=== PATIENT | male | born 1995 | race Caucasian/White ===

== ENCOUNTER → 2025-06-26 | Outpatient (CLI) | payer OTHER, SELFPAY ==
[2025-06-26 19:06] LABS: AST(SGOT) 41 U/L (<=37); Alanine Aminotransfer ALT/SGPT 62 U/L (<=46); Albumin, Serum 4.7 g/dL (3.5-5.0); Alkaline Phosphatase 76 U/L (40-129); Anion Gap 13 (5-15); BUN 12 mg/dL (4-19); BUN/Creat Ratio 12.3 RATIO (10-20); Calcium,Total 10.1 mg/dL (7.6-11.0); Carbon Dioxide 26.0 mmol/L (21.0-32.0); Chloride 102 mmol/L (98-108); Cholesterol 192 mg/dL (<=200); Globulin 3.4 g/dL (2.2-4.2); Glucose 101 mg/dL (70-99); Low Density Lipoprotein Calc. 115 mg/dL; Magnesium 2.0 mg/dL (1.5-2.2); Potassium 3.7 mmol/L (3.3-5.1); Triglycerides 177 mg/dL; Very Low Density Lipoprotein 35 mg/dL (5-40); Vitamin B12 613 pg/mL (180-914); Vitamin D,25 Hydroxy 21.9 ng/mL (30-100); cholesterol:hdl ratio screen 4.22
[2025-06-26 19:34] LABS: Color, Urine Yellow (Yellow); Glucose, Dipstick Normal (Normal); Ketone-Dipstick Negative (Negative); Leukocyte Esterase-Dipstick Negative /ul (Negative); Nitrite-Dipstick Negative (Negative); Occult Blood-Urine Negative /ul (Negative); Protein-Dipstick Negative (Negative); Specific Gravity, Urine 1.020 (1.002-1.030); Urine Bilirubin Dipstick Negative (Negative)
[2025-06-26 22:39] LABS: Mucous, Urine 2+ /hpf (<or=2+); Red Blood Cells-Urine 0-5 SEEN /hpf (0-5); Squamous Epithelial Cells - UA 0-5 SEEN /hpf (0-5)
== END | disposition home or self-care (01) ==
LOC: MFPLAB 16:42
PROVIDERS: Visit Provider Family Medicine
DX: E66.9 Obesity, unspecified (principal); R68.89 Other general symptoms and signs
CPT/HCPCS: 36415; 80053; 80061; 81001; 82306; 82607; 83735; 84439; 84443

== ENCOUNTER → 2025-07-03 | Outpatient (CLI) | payer OTHER, SELFPAY ==
[2025-07-03 18:32] LABS: Hepatitis B Surface Antigen Nonreactive (Nonreactive); Hepatitis C Antibody Nonreactive (Nonreactive)
== END | disposition home or self-care (01) ==
LOC: MFPLAB 16:24
PROVIDERS: PCP Family Medicine; Referring Provider Family Medicine; Visit Provider Family Medicine
DX: R73.09 Other abnormal glucose (principal); R79.89 Other specified abnormal findings of blood chemistry
CPT/HCPCS: 36415; 83036; 86706; 86803; 87340

== ENCOUNTER 2025-07-23 16:50 | Emergency (ER) | payer OTHER, SELFPAY ==
[2025-07-23 16:51] VITALS: BP 149/100; PULSE 104; RESP 26; TEMP 36.1; O2SAT 97; BMI 31.4
--- NOTE | 2025-07-23 17:14 | EX.ED.VIS.PS ---
HPI HPI - Psych History of Present Illness Chief Complaint: Mental Health Narrative Narrative: Patient is a 29-year-old male presenting to the emergency department for suicidal ideation and alcohol abuse. Patient has a prior history of alcohol abuse. States that he has been drinking 1/5 of vodka for years. States that he drank 1/5 of liquor last night and then drink 4 and 1 drinks this morning. States that he used to use cocaine and Adderall but does not use this any longer. He states that when he drinks he becomes sad and then has suicidal thoughts. States if he were to kill himself he would drink himself to . States that his last drink was about 4 hours ago. Denies any physical complaints. States he never been hospitalized for any psychiatric reason for alcohol abuse/detox/rehab. Arrives here with and father. PFSH PFS Medical History Alcohol abuse Home Medications Medication Instructions Recorded Last Taken Type buspirone 10 mg tablet 10 mg PO BID 07/23/25 07/23/25 History ergocalciferol (vitamin D2) 1,250 1,250 mcg PO QWEEK 07/23/25 07/17/25 History mcg (50,000 unit) capsule sertraline 25 mg tablet 25 mg PO DAILY 07/23/25 07/23/25 History Allergy/AdvReac Type Severity Reaction Status Date / Time Penicillins Allergy Mild Hives Verified 07/23/25 16:54 Sulfa (Sulfonamide Allergy Mild Hives Verified 07/23/25 16:54 Antibiotics) Social History Smoking Status: Current every day smoker tobacco type: cigarettes ROS ROS ED ROS Narrative see HPI EXAM Physical Exam Narrative Exam Narrative: Vital signs: Reviewed General: Alert and orientedx3. No acute distress. Agitated. Intoxicated HEENT: Head is normocephalic and atraumatic, sinuses nontender, pupils equal round and reactive. Nares are patent. Oropharynx and throat exams normal. Neck: Supple without lymphadenopathy nontender Cardiovascular: Regular rate and rhythm, no murmurs. No rubs or gallops. Normal S1 and S2 Respiratory: Clear to auscultation bilaterally. No wheezes, rales, rhonchi Abdominal: Soft and nontender. Normal bowel sounds. No guarding or rebound. Nonsurgical abdomen Extremities: No tenderness. No bruising. Normal range of motion. Normal sensation. Skin: No rash or redness. Neurological: Cranial nerves II through XII are grossly intact. Normal strength and sensation. Normal cerebellar function The rest of the physical exam is unremarkable Const Vital Signs: 07/23/25 16:51 07/23/25 20:29 07/23/25 21:51 Temperature 97 F L 98.2 F Temperature Source Temporal Pulse Rate 104 H 76 76 Respiratory Rate 26 H 16 16 Blood Pressure 149/100 H 131/96 H 131/96 H Blood Pressure Mean 116 107 107 Pulse Ox 97 100 100 Oxygen Delivery Method Room Air Room Air General Appearance ED: irritable Psych mental status grossly normal Appearance: appropriate and well kempt Attitude: agitated and hostile Activity / Motor Behavior: fidgetting, restless and avoids eye contact Speech: normal speech Mood & Affect: depressed, irritable and labile affect Thought Process: normal thought process Thought Content: suicidality, No homicidality, No delusion(s) and No hallucination(s) Attention / Concentration: attention grossly intact and concentration grossly intact MDM MDM MDM Narrative Medical decision making narrative: Patient is a 29-year-old male presenting to emergency department for alcohol abuse and suicidal ideation. Patient was seen and examined. Vitals are stable. Patient resting in chair comfortably no acute distress. He has no physical complaints. He is slightly hostile and has labile emotions. Given the patient's current intoxication and suicidal thoughts he will pink slipped. Basic labs were obtained for medical clearance and social work was consulted. Labs are unremarkable other than a mild anion gap of 17 and alcohol level of 298. Positive for cannabinoids. EKG shows normal sinus rhythm with sinus arrhythmia. No ischemic changes. Social work evaluated the patient and also recommended inpatient psychiatric admission with dual treatment of alcohol abuse and mental illness. Patient and family at bedside were updated on the treatment plan. Patient was accepted at [facility] and will be transported there. Clinical impression: Alcohol abuse Suicidal ideation History & Record Review Discussion w/independent historian: Patient and Significant other Lab Data Attestation: I reviewed the patient's lab results. Labs: Laboratory Results - last 24 hr 07/23/25 07/23/25 17:22 20:19 WBC 6.5 RBC 5.16 Hgb 16.1 Hct 46.7 MCV 90.5 MCH 31.2 MCHC 34.5 RDW Std Deviation 42.0 RDW Coeff of Francis 12.7 Plt Count 297 MPV 9.1 Immature Gran % (Auto) 0.200 Neut % (Auto) 45.9 L Lymph % (Auto) 44.0 H [place] % (Auto) 8.3 Eos % (Auto) 0.5 Baso % (Auto) 1.1 H Absolute Neuts (auto) 3.0 Absolute Lymphs (auto) 2.87 Nucleated RBC % 0 Sodium 147 H Potassium 3.8 Chloride 107 Carbon Dioxide 22.9 Anion Gap 17 H BUN 8 Creatinine 1.02 Estim Creat Clear Calc 144.42 Est GFR (MDRD) Non-Af 101 BUN/Creatinine Ratio 8.0 L Glucose 117 H Calcium 9.1 Urine Opiates Screen NEGATIVE U Buprenorphine Qual NEGATIVE Ur Oxycodone Screen NEGATIVE Urine Methadone Screen NEGATIVE Urine Fentanyl Screen NEGATIVE Ur Barbiturates Screen NEGATIVE Ur Phencyclidine Scrn NEGATIVE Ur Amphetamines Screen NEGATIVE U Benzodiazepines Scrn NEGATIVE Urine Cocaine Screen NEGATIVE U Cannabinoids Screen PRESUMPTIVE POSITIVE Ethyl Alcohol 298.0 H Discharge Plan Triage Chief Complaint: Mental Health ED Provider: Klaudia Wilson Dx/Rx/DC Orders Prescriptions: No Action buspirone 10 mg tablet 10 mg PO BID sertraline 25 mg tablet 25 mg PO DAILY ergocalciferol (vitamin D2) 1,250 mcg (50,000 unit) capsule 1,250 mcg PO QWEEK Primary Care Provider: Kevin Schmidt Referrals: Kevin Schmidt MD [Primary Care Provider, [facility]] Print Language: Guamanian Disposition Disposition: Psychiatric Hospital or Unit Discharge Location: [facility] Discharge Date/Time: 07/23/25 22:49
--- NOTE | 2025-07-23 17:28 | EKG12_ITS ---
Test Reason : MHC Blood Pressure : */* mmHG Vent. Rate : 76 BPM Atrial Rate : 76 BPM P-R Int : 146 ms QRS Dur : 86 ms QT Int : 366 ms P-R-T Axes : 29 31 19 degrees QTcB Int : 411 ms Normal sinus rhythm with sinus arrhythmia Normal ECG Confirmed by EBONY THOMPSON ([id number]), editor producer CANDIDO GRISSOM ([id number]) on 07/28/2025 6:28:07 AM Referred By: Confirmed By: EBONY THOMPSON
[2025-07-23 17:31] LABS: Hematocrit 46.7 % (40-54); Hemoglobin 16.1 g/dL (13.0-16.5); Immature Granulocytes Count 0.010 X10^3/uL (0.0-0.0); Mean Corp Hgb Conc 34.5 g/dL (32-36); Mean Corpuscular Volume 90.5 fL (80-94); Mean Platelet Vol. 9.1 fl (6.2-12.0); NRBC Flagged by Analyzer 0 % (0-5); Platelet Count 297 K/mm3 (150-450); RBC Distribution Width CV 12.7 % (11.6-14.6); RBC Distribution Width SD 42.0 fl (35.1-43.9); Red Blood Count 5.16 M/mm3 (4.6-6.2); White Blood Count 6.5 K/mm3 (4.4-11.0)
[2025-07-23] MEDS: Nicotine (PBKC) 7 MG Patch TD (17:34)
[2025-07-23 17:59] LABS: Alcohol, Blood (Medical)-Serum 298.0 mg/dL (<=10.0)
[2025-07-23 18:00] LABS: Anion Gap 17 (5-15); BUN 8 mg/dL (4-19); BUN/Creat Ratio 8.0 RATIO (10-20); Calcium,Total 9.1 mg/dL (7.6-11.0); Carbon Dioxide 22.9 mmol/L (21.0-32.0); Chloride 107 mmol/L (98-108); Estimated Creatinine Clearance 144.42 ml/min (50-250); Glucose 117 mg/dL (70-99); Potassium 3.8 mmol/L (3.3-5.1)
--- OUTSIDE RECORDS SUMMARY | 2025-07-23 18:53 | XMS RPT_ITS | CCD ---
Author Organization [place] [facility] Care Team Providers Care Grinder Name Role Phone Kevin Schmidt Attending Unavailable Kevin Schmidt Attending Unavailable Kevin Schmidt Referring Unavailable Kevin Schmidt Primary Care Unavailable Problems Problem Classification Problem Date Documented Da te Episodic/Chronic Other nutritional; endocrine; and metabolic disorders (1 source) Obesity, unspecified; Translations: [Obesity, unspecified] Onset: 07-02-2025 Chronic Other screening for suspected conditions (not mental disorders or infectious disease) (1 source) Other specified abnormal findings of blood chemistry; Translations: [Other specified abnormal findings of blood chemistry] Onset: 07-03-2025 Episodic Results Test Name Value Interpretation Reference Range Facil ity Hemoglobin A1con 07-03-2025 HbA1c (Bld) [Mass fraction] 5.2 % Normal <=5.6 [facility] Comment on above: Result Comment: Norm al < 5.7 % Prediabetic 5.7 - 6.4 % Diabetic >or= 6.5 % Please note range changes. Performed By: #### L 3890.6202, L3890.6102, L501.9985, L3890.6301 #### [facility] [address] [place], [place], [id number] Hepatitis B Surface Antibody on 07-03-2025 HEP B Surf Ab Non-Reactive Normal [facility] Comment on above: Result Comment: <8.5 mIU/mL: Non-Reactive 8.5<= x <11.5 mIU/mL: Indeterminate >=11.5 mIU/mL: Reactive Non Reactive: Inconsistent with immunity less than <10 mIU/mL Reactive: Consistent with immunity greater than or equal to 10 mIU/mL Performed By: #### L 3890.6202, L3890.6102, L501.9985, L3890.6301 #### [facility] [address] [place], [address] Hepatitis C Antibodyon 07-03 Hepatitis C Ab Non-Reactive Normal Nonreactive [facility] Comment on above: Result Comment: Reac tive: Presumptive evidence of antibodies to HCV. Follow CDC recommendations for supplemental testing. Non-Reactive: Antibodies to HCV were not detected; does not exclude the possibility of exposure to HCV Reactive Results are presumptive evidence of antibodies to HCV. Follow CDC recommendations for supplemental testing. Order confirmation testing: HCV Quant by PCR testing - HCVPCR #[id number] Non Reactive: < 0.8 Equivocal: >/= 0.8 to < 1.0 Reactive: >/= 1.0 The [facility] requires that a reactive/equivocal HCV antibody result be sent out for confirmation. HCV Quant by PCR testing. Performed By: #### L 503.0106, L506.1001, L400.0001 #### [facility] [address] [place], [place], [address] L3890.6102on 07-03-2025 HEP B Surf Ag Non-Reactive Normal Nonreactive [facility] Comment on above: Result Comment: Reac tive: Presumptive evidence of HBV. Repeatedly reactive samples must be confirmed using a neutralization test ([employer] HBsAg Confirmatory Test) Non-Reactive: HBsAg not detected; does not exclude the possibility of exposure to HBV Performed By: #### L 503.0106, L506.1001, L400.0001 #### [facility] [address], [place], [address] Comprehensive Metabolic Prof ilon 06-26-2025 Albumin [Mass/Vol] 4.7 g/dL Normal 3.5-5.[address] [facility] Comment on above: Order Comment: Order Date: 06/26/25 Order Info: 0786-1 - CMP Order Info: [id number] - LIPID Order Info: [id number] - MG Order Info: 3016-3 - TSH Order Info: 3024-7 - T4F Performed By: #### L 500.4100, L500.4050, L506.0400, L501.9520, L501.5200 #### [facility] [address] [place], [address] Albumin/Globulin [Mass ratio] 1.4 {ratio} Normal 0.9-2.4 [facility] Comment on above: Order Comment: Order Date: 06/26/25 Order Info: 0786-1 - CMP Order Info: [id number] - LIPID Order Info: [id number] - MG Order Info: 3016-3 - TSH Order Info: 3024-7 - T4F Performed By: #### L 500.4100, L500.4050, L506.0400, L501.9520, L501.5200 #### [facility] [address] [place], [address] ALK PHOS 76 U/L Normal 40-129 [facility] Comment on above: Order Comment: Order Date: 06/26/25 Order Info: 785-1 - CMP Order Info: [id number] - LIPID Order Info: [id number] - MG Order Info: 3016-3 - TSH Order Info: 3024-7 - T4F Performed By: #### L 500.4100, L500.4050, L506.0400, L501.9520, L501.5200 #### [facility] [address] [place], [address] ALT [Catalytic activity/Vol] 62 U/L High <=46 [facility] Comment on above: Order Comment: Order Date: 06/26/25 Order Info: 0786-1 - CMP Order Info: [id number] - LIPID Order Info: 38524-3 - MG Order Info: 3016-3 - TSH Order Info: 3024-7 - T4F Performed By: #### L 500.4100, L500.4050, L506.0400, L501.9520, L501.5200 #### [facility] [address] [place], [address] AST [Catalytic activity/Vol] 41 U/L High <=37 [facility] Comment on above: Order Comment: Order Date: 06/26/25 Order Info: 0786-1 - CMP Order Info: 98024-3 - LIPID Order Info: 16731-0 - MG Order Info: 3016-3 - TSH Order Info: 3024-7 - T4F Performed By: #### L 500.4100, L500.4050, L506.0400, L501.9520, L501.5200 #### [facility] [address] [place], [address] Bilirubin [Mass/Vol] 0.39 mg/dL Normal 0.00-1.30 [facility] Comment on above: Order Comment: Order Date: 06/26/25 Order Info: 86-1 - CMP Order Info: 96618-7 - LIPID Order Info: [id number] - MG Order Info: 3015-3 - TSH Order Info: 3024-7 - T4F Performed By: #### L 500.4100, L500.4050, L506.0400, L501.9520, L501.5200 #### [facility] [address] [place], [address] BUN/CRE 12.3 RATIO Normal 10-20 [facility] Comment on above: Order Comment: Order Date: 06/26/25 Order Info: 0786-1 - CMP Order Info: 70905-1 - LIPID Order Info: 77803-2 - MG Order Info: 301-3 - TSH Order Info: 3024-7 - T4F Performed By: #### L 500.4100, L500.4050, L506.0400, L501.9520, L501.5200 #### [facility] [address] [place], [address] Calcium [Mass/Vol] 10.1 mg/dL Normal 7.6-11.[address] [facility] Comment on above: Order Comment: Order Date: 06/26/25 Order Info: 0786-1 - CMP Order Info: 04063-2 - LIPID Order Info: [id number] - MG Order Info: 3016-3 - TSH Order Info: 3024-7 - T4F Performed By: #### L 500.4100, L500.4050, L506.0400, L501.9520, L501.5200 #### [facility] [address] [place], [address] Chloride [Moles/Vol] 102 mmol/L Normal 98-108 [facility] Comment on above: Order Comment: Order Date: 06/26/25 Order Info: 0786-1 - CMP Order Info: 96046-3 - LIPID Order Info: [id number] - MG Order Info: 3016-3 - TSH Order Info: 3024-7 - T4F Performed By: #### L 500.4100, L500.4050, L506.0400, L501.9520, L501.5200 #### [facility] [address] [place], [place], [address] CO2 [Moles/Vol] 26.0 mmol/L Normal 21.0-32.0 [facility] Comment on above: Order Comment: Order Date: 06/26/25 Order Info: 86-1 - CMP Order Info: 68633-7 - LIPID Order Info: [id number] - MG Order Info: 3016-3 - TSH Order Info: 3024-7 - T4F Performed By: #### L 500.4100, L500.4050, L506.0400, L501.9520, L501.5200 #### [facility] [address] [place], [address] Creatinine [Mass/Vol] 0.94 mg/dL Normal 0.70-1.20 [facility] Comment on above: Order Comment: Order Date: 06/26/25 Order Info: 0786-1 - CMP Order Info: [id number] - LIPID Order Info: [id number] - MG Order Info: 3016-3 - TSH Order Info: 3024-7 - T4F Performed By: #### L 500.4100, L500.4050, L506.0400, L501.9520, L501.5200 #### [facility] [address] [place], [address] GAP 13 Normal 5-15 [facility] Comment on above: Order Comment: Order Date: 06/26/25 Order Info: 86-1 - CMP Order Info: 60934-6 - LIPID Order Info: [id number] - MG Order Info: 3016-3 - TSH Order Info: 3027 - T4F Performed By: #### L 500.4100, L500.4050, L506.0400, L501.9520, L501.5200 #### [facility] [address] [place], [address] GFR/1.73 sq M.predicted among non-blacks MDRD (S/P/Bld) [Vol rate/Area] 112 mL/min/{1.73_m2} Normal >60 [facility] Comment on above: Order Comment: Order Date: 06/26/25 Order Info: 785- - CMP Order Info: 75319-8 - LIPID Order Info: [id number] - MG Order Info: 3 - TSH Order Info: 7 - T4F Result Comment: mL/m in/1.73m2 CKD-EPI Creatinine Equation (2020) Performed By: #### L 500.4100, L500.4050, L506.0400, L501.9520, L501.5200 #### [facility] [address] [place], [address] Globulin (S) [Mass/Vol] 3.4 g/dL Normal 2.2-4.2 [facility] Comment on above: Order Comment: Order Date: 06/26/25 Order Info: 785-1 - CMP Order Info: 24692-0 - LIPID Order Info: [id number] - MG Order Info: 3016-3 - TSH Order Info: 3024-7 - T4F Performed By: #### L 500.4100, L500.4050, L506.0400, L501.9520, L501.5200 #### [facility] [address] [place], [address] Glucose [Mass/Vol] 101 mg/dL High 70-[address] [facility] Comment on above: Order Comment: Order Date: 06/26/25 Order Info: 0786-1 - CMP Order Info: 78301-5 - LIPID Order Info: [id number] - MG Order Info: 3016-3 - TSH Order Info: 3024-7 - T4F Performed By: #### L 500.4100, L500.4050, L506.0400, L501.9520, L501.5200 #### [facility] [address] [place], [address] Potassium [Moles/Vol] 3.7 mmol/L Normal 3.3-5.1 [facility] Comment on above: Order Comment: Order Date: 06/26/25 Order Info: 785-08 - CMP Order Info: - LIPID Order Info: [id number] - MG Order Info: 3016-3 - TSH Order Info: 3024-7 - T4F Performed By: #### L 500.4100, L500.4050, L506.0400, L501.9520, L501.5200 #### [facility] [address] [place], [address] Sodium [Moles/Vol] 141 mmol/L Normal 133-[address] [facility] Comment on above: Order Comment: Order Date: 06/26/25 Order Info: 07- - CMP Order Info: 93236-4 - LIPID Order Info: [id number] - MG Order Info: 3016-3 - TSH Order Info: 3024-7 - T4F Performed By: #### L 500.4100, L500.4050, L506.0400, L501.9520, L501.5200 #### [facility] [address] [place], [address] T PROT 8.1 g/dL Normal 5.9-8.4 [facility] Comment on above: Order Comment: Order Date: 06/26/25 Order Info: 07-1 - CMP Order Info: 87710-5 - LIPID Order Info: [id number] - MG Order Info: 3 - TSH Order Info: 7 - T4F Performed By: #### L 500.4100, L500.4050, L506.0400, L501.9520, L501.5200 #### [facility] [address] [place], [address] Urea nitrogen [Mass/Vol] 12 mg/dL Normal 4-19 [facility] Comment on above: Order Comment: Order Date: 06/26/25 Order Info: 785- - CMP Order Info: - LIPID Order Info: [id number] - MG Order Info: 3 - TSH Order Info: 3024-02 - T4F Performed By: #### L 500.4100, L500.4050, L506.0400, L501.9520, L501.5200 #### [facility] [address] [place], [address] Lipid Profileon 06-26-2025 CHOL:HDL 4.22 Normal [facility] Comment on above: Order Comment: Order Date: 06/26/25 Order Info: 785-08 - CMP Order Info: - LIPID Order Info: [id number] - MG Order Info: 3 - TSH Order Info: 3024-02 - T4F Performed By: #### L 500.4100, L500.4050, L506.0400, L501.9520, L501.5200 #### [facility] [address] [place], [address] Cholesterol [Mass/Vol] 192 mg/dL Normal <=200 [facility] Comment on above: Order Comment: Order Date: 06/26/25 Order Info: 0786-1 - CMP Order Info: [id number] - LIPID Order Info: [id number] - MG Order Info: 3016-3 - TSH Order Info: 3024-7 - T4F Result Comment: Chol esterol level, Desirable <200 mg/dL Borderline high cholesterol 200-239 mg/dL High cholesterol >=240 mg/dL Recommendations of the NCEP Adult Treatment Panel for the following risk-cutoff thresholds for the [place] population. Performed By: #### L 500.4100, L500.4050, L506.0400, L501.9520, L501.5200 #### [facility] [address] [place], [address] Cholesterol in HDL [Mass/Vol] 46 mg/dL Normal [facility] Comment on above: Order Comment: Order Date: 06/26/25 Order Info: 0786-1 - CMP Order Info: [id number] - LIPID Order Info: 94430-1 - MG Order Info: 3 - TSH Order Info: 3024-02 T4F Result Comment: Laura onal Cholesterol Education Program (NCEP) guidelines: <40 mg/dL: Low HDL-cholesterol (major risk factor for CHD) >= 60 mg/dL: High HDL-cholesterol (negative risk factor for CHD) HDL-cholesterol is affected by a number of factors, e.g. smoking, exercise, hormones, sex and age. Performed By: #### L 500.4100, L500.4050, L506.0400, L501.9520, L501.5200 #### [facility] [address] [place], [address] Cholesterol in LDL [Mass/Vol] 115 mg/dL Normal [facility] Comment on above: Order Comment: Order Date: 06/26/25 Order Info: 0786-1 - CMP Order Info: [id number] - LIPID Order Info: 12417-3 - MG Order Info: 3015-3 - TSH Order Info: 3024-02 T4F Result Comment: Bord frhifh=539-306 mg/dL Higher Jyxw=999 mg/dL or greater Blair Equation 2020 for LDL-C Performed By: #### L 500.4100, L500.4050, L506.0400, L501.9520, L501.5200 #### [facility] [address] [place], [address] Cholesterol in VLDL [Mass/Vol] 35 mg/dL Normal 5-40 [facility] Comment on above: Order Comment: Order Date: 06/26/25 Order Info: 785- - CMP Order Info: - LIPID Order Info: [id number] - MG Order Info: 3 - TSH Order Info: 3024-02 - T4F Performed By: #### L 500.4100, L500.4050, L506.0400, L501.9520, L501.5200 #### [facility] [address] [place], [address] Triglyceride [Mass/Vol] 177 mg/dL Normal [facility] Comment on above: Order Comment: Order Date: 06/26/25 Order Info: 785-08 - CMP Order Info: - LIPID Order Info: [id number] - MG Order Info: 3015-10 - TSH Order Info: 3024-02 - T4F Result Comment: The drugs N-Acetylcysteine and Metamizole may falsely depress this assay. Normal range: <150 mg/dL Borderline High: 150-199 mg/dL High: 200-499 mg/dL Very High: >500 mg/dL Performed By: #### L 500.4100, L500.4050, L506.0400, L501.9520, L501.5200 #### [facility] [address] [place], [address] Magnesiumon 06-26-2025 Magnesium [Mass/Vol] 2.0 mg/dL Normal 1.5-2.2 [facility] Comment on above: Order Comment: Order Date: 06/26/25 Order Info: 785-08 - CMP Order Info: - LIPID Order Info: [id number] - MG Order Info: 3 - TSH Order Info: 3024-02 - T4F Performed By: #### L 500.4100, L500.4050, L506.0400, L501.9520, L501.5200 #### [facility] [address] [place], [address] T4 Free Directon 06-26-2025 T4 FREE DIRECT 1.30 ng/dL Normal 0.76-1.46 [facility] Comment on above: Order Comment: Order Date: 06/26/25 Order Info: 785-1 - CMP Order Info: 17915-7 - LIPID Order Info: [id number] - MG Order Info: 3016-3 - TSH Order Info: 7 - T4F Performed By: #### L 500.4100, L500.4050, L506.0400, L501.9520, L501.5200 #### [facility] [address] [place], [address] Thyroid Stim Hormone (TSH)on 06-26-2025 TSH 2.690 uIU/mL Normal 0.300-4.200 [facility] Comment on above: Order Comment: Order Date: 06/26/25 Order Info: 785-08 - CMP Order Info: - LIPID Order Info: [id number] - MG Order Info: 3016-3 - TSH Order Info: 7 - T4F Performed By: #### L 500.4100, L500.4050, L506.0400, L501.9520, L501.5200 #### [facility] [address] [place], [address] Urinalysis, Completeon 06-26 BACTERIA 1+ /hpf Normal None Seen [facility] Comment on above: Order Comment: Urine , Random Performed By: #### L 503.0106, L506.1001, L400.0001 #### [facility] [address] [place], [address] EPI,SQUAMOUS 0-5 SEEN Normal 0-5 [facility] Comment on above: Order Comment: Urine , Random Performed By: #### L 503.0106, L506.1001, L400.0001 #### [facility] [address] [place], [address] Mucus Ql (Urine sed) 2+ /hpf Normal [facility] Comment on above: Order Comment: Urine , Random Performed By: #### L 503.0106, L506.1001, L400.0001 #### [facility] [address] [place], [address] RBC 0-5 SEEN Normal 0-5 [facility] Comment on above: Order Comment: Urine , Random Performed By: #### L 503.0106, L506.1001, L400.0001 #### [facility] [address] [place], [address] WBC 0-5 SEEN Normal 0-5 [facility] Comment on above: Order Comment: Urine , Random Performed By: #### L 503.0106, L506.1001, L400.0001 #### [facility] [address] [place], [address] Vitamin B12on 06-26-2025 Cobalamin (Vitamin B12) [Mass/Vol] 613 pg/mL Normal 180-914 [facility] Comment on above: Order Comment: Order Date: 06/26/25 Order Info: 0786-1 - CMP Order Info: [id number] - LIPID Order Info: [id number] - MG Order Info: 3 - TSH Order Info: 3024-02 - T4F Performed By: #### L 503.0106, L506.1001, L400.0001 #### [facility] [address] [place], [address] Vitamin D,25 Hydroxyon 06-26 Vitamin D 25-OH 21.9 ng/mL Low 30-100 [facility] Comment on above: Order Comment: Order Date: 06/26/25 Order Info: 0786-1 - CMP Order Info: 74712-2 - LIPID Order Info: [id number] - MG Order Info: 3 - TSH Order Info: 3027 - T4F Result Comment: Nakita min D Status Deficiency: <20 ng/mL (50nmol/L) Insufficiency: 20-30 ng/mL (50-75 nmol/L) Sufficiency: 30-100 ng/mL (75-250 nmol/L) Toxicity: >100 ng/mL (>250 nmol/L) Performed By: #### L 503.0106, L506.1001, L400.0001 #### [facility] [address] [place], [address] Encounters Encounter Date Encounter Type Care Provider Facility Start: 07-03-2025 ambulatory Kevin Judy Schmidt [facility] y:[facility] Start: 06-26-2025 End: [facility] Payers Date Payer Category Payer Private Health Insurance [id number] 2025 Self-pay Unknown [id number] Unknown [id number] Summary Purpose Family History No Family History Records Found Advance Directives No Advanced Directives Records Found Additional Source Comments (unrecognized sect ion and content) No Status Records Found INFORMATION SOURCE (unrecogn ized section and content) DATE CREATED AUTHOR 07/04/2025 [facility] FOR RECORDS PERTAINING TO PATIENTS WHO ARE OR HAVE BEEN ENROLLED IN A CHEMICAL DEPENDENCY/SUBSTANCEABUSE PROGRAM, SOME INFORMATION MAY BE OMITTED. This clinical summary was aggregated from multiple sources. Caution should be exercised in using it in the provision of clinical care. This summary normalizes information from multiple sources, and as a consequence, information in this document may materially change the coding, format and clinical context of patient data. In addition, data may be omitted in some cases. CLINICAL DECISIONS SHOULD BE BASED ON THE PRIMARY CLINICAL RECORDS. [employer] provides no warranty or guarantee of the accuracy or completeness of information in this document.
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
[2025-07-23 20:29] VITALS: BP 131/96; PULSE 76; RESP 16; O2SAT 100
[2025-07-23 20:48] LABS: Barbiturate Urine NEGATIVE (< 200 ng/mL); Benzodiazepine Urine NEGATIVE (< 200 ng/mL); PCP Urine NEGATIVE (< 25 ng/mL); THC Urine PRESUMPTIVE POSITIVE (< 50 ng/mL)
--- NOTE | 2025-07-23 21:45 | CM.ED ---
Social work Patient accepted at [facility]. Dr Mcclellan Odell unit, Intake 1 N2N: , opt 2 SW faxed pink slip to [facility] per request. Copy of pink slip attached to SW's notes. 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 Patient and family updated as well. Patient's requested more information and [facility] brochure given to family, along with visitation information known to this SW. Plan: [facility] [place], pending transport. ETA 2230. Charo Berkowitz, INDUSTRIAL RELATIONS COMMISSIONER, COMMUNITY RECREATION COORDINATOR
[2025-07-23 21:51] VITALS: BP 131/96; PULSE 76; RESP 16; TEMP 36.8; O2SAT 100
[2025-07-23] MEDS: Nicotine 4mg Gum (PBKC) 4 MG GUM PO (22:00)
== END 2025-07-23 22:49 ==
LOC: ED 18:51
PROVIDERS: Emergency Provider Student in an Organized Health Care Education/Training Program; PCP Family Medicine; Visit Provider Student in an Organized Health Care Education/Training Program
DX: F10.10 Alcohol abuse, uncomplicated (principal); R45.851 Suicidal ideations; F17.210 Nicotine dependence, cigarettes, uncomplicated; Z79.899 Other long term (current) drug therapy; Y90.8 Blood alcohol level of 240 mg/100 ml or more
CPT/HCPCS: 80048; 80307; 82077; 85025; 93005; 99285